=== PATIENT | female | born 1985 | race African-American/Black ===

== ENCOUNTER 2019-07-13 17:19 | Emergency (ER) | payer MEDICAID ==
[~2019-07-13] VITALS: Ht 157.5 cm; Wt 70.4 kg
[2019-07-13 17:25] VITALS: BP 128/71
[2019-07-13] MEDS ORDERED: MIRT15TA PO (17:33)
[2019-07-13] MEDS ORDERED: MULT-1469 PO (17:33)
[2019-07-13] MEDS ORDERED: PHEN-1749 PO (17:33)
[2019-07-13] MEDS ORDERED: TIZA4CAP PO (17:33)
[2019-07-13] MEDS ORDERED: NALT50TA5 PO (17:33)
[2019-07-13] MEDS ORDERED: CARI350T PO (17:33)
[2019-07-13] MEDS ORDERED: FLUO40CA6 PO (17:33)
[2019-07-13] MEDS ORDERED: PIRO10CA PO (17:33)
[2019-07-13] MEDS ORDERED: TRAZ-343 PO (17:33)
[2019-07-13] MEDS ORDERED: CHOL100013 PO (17:33)
[2019-07-13] MEDS ORDERED: CLON0.5T PO (17:33)
[2019-07-13] MEDS ORDERED: ONDA8TAB PO (17:33)
--- NOTE | 2019-07-13 17:51 | NUR ---
PT TO ER BED 1 VIA W/C
--- NOTE | 2019-07-13 17:55 | NUR ---
C/O GENERALIZED BODY PAIN WORSE IN LOW BACK PAIN X 12 PM TODAY HX-BACK PAIN DENIES UTI SYMPTOMS STATES SUBJECTIVE FEVER EARLIER TODAY STATES SORE THROAT, COUGH, RUNNY NOSE X YESTERDAY. DENIES N/V LIVES IN A HALF WAY HOUSE ALLERGY TO PCN PAIN 03/11. PLACED ON BEDSIDE MONITOR. HR 97, 99% RA, RR 22. LMP 07/06/2019 HX-FIBROMYALGIA, MS, PTSD
--- NOTE | 2019-07-13 19:11 | NUR ---
Nette grayson in [facility] - 07/13/19 at 1923 by KIAH REPORT TO MICHAEL RENEE, TRANSFER OF CARE AT THIS TIME
--- NOTE | 2019-07-13 19:12 | NUR ---
ASSISTED PT TO RESTROOM --STAYED WITH PT IN RESTROOM TO ENSURE SAFETY. PT PROVIDED URINE SAMPLE.
--- NOTE | 2019-07-13 19:13 | NUR ---
REPORT TO MICHAEL RENEE, TRANSFER OF CARE AT THIS TIME
[2019-07-13] MEDS ORDERED: KETOROLAC 30 MG/ML VIAL IM ONE (19:30)
--- NOTE | 2019-07-13 19:36 | NUR ---
XRAY AT BEDSIDE
[2019-07-13 20:05] LABS: APPEARANCE,URINE CLEAR (CLEAR); BILIRUBIN,URINE NEGATIVE (NEGATIVE); BLOOD, URINE NEGATIVE (NEGATIVE); COLOR,URINE YELLOW (YELLOW); LEUKOCYTE ESTERASE ,URINE TRACE (NEGATIVE); NITRITE, URINE NEGATIVE (NEGATIVE); UGLUCOSE NEGATIVE (NEGATIVE)
[2019-07-13 20:14] LABS: BASOPHILS % (AUTO) 0.3 % (0.0-2.0); EOSINOPHILS % (AUTO) 0.5 % (0.0-4.0); HEMATOCRIT 38.2 % (36-48); HEMOGLOBIN 12.6 g/dL (12.0-16.0); LYMPHOCYTES # (AUTO) 0.6 K/uL (2.5-16.5); LYMPHOCYTES % (AUTO) 5.9 % (20.5-51.1); MEAN CORPUSCULAR HEMOGLOBIN 31 pg (27-31); MEAN CORPUSCULAR HGB CONC 33 g/dL (33-37); MEAN CORPUSCULAR VOLUME 94.5 fL (80-94); MONOCYTES # (AUTO) 0.3 K/uL (0.8-1.0); MONOCYTES % (AUTO) 3.7 % (1.7-9.3); NEUTROPHILS # (AUTO) 8.4 K/uL (1.8-7.7); NEUTROPHILS % (AUTO) 89.6 % (42.2-75.2); PLATELET COUNT (AUTO) 181 K/uL (140-450); RED BLOOD CELL COUNT(AUTO) 4.04 MIL/uL (4.20-5.40); RED CELL DISTRIBUTION WIDTH 15.4 % (11.6-13.7); WHITE BLOOD COUNT (AUTO) 9.4 K/uL (4.8-10.8)
--- NOTE | 2019-07-13 20:30 | NUR ---
RN ASSISTED PATIENT TO RESTROOM, AMBULATED TO AND FROM RESTROOM WITHOUT INCIDENT. PATIENT STILL COMPLAINING OF PAIN. HEART RATE 105 BPM AND BP 121/85.
[2019-07-13 20:42] LABS: RBC,URINE 0 /HPF (0-5); WBC,URINE 0-5 /HPF (0-5)
[2019-07-13 21:02] LABS: ALBUMIN 3.2 g/dL (3.4-5.0); ANION GAP 16.1 (8-16); CARBON DIOXIDE 22.8 mmol/L (21-32); CREATININE 0.8 mg/dL (0.6-1.3); POTASSIUM 3.9 mmol/L (3.5-5.1); THYROID STIMULATING HORMONE 1.43 uIU/mL (0.34-3.74); TOTAL BILIRUBIN 0.4 mg/dL (0.0-1.0)
[2019-07-13] MEDS ORDERED: predniSONE 20 MG TAB PO ONE (21:45)
--- NOTE | 2019-07-13 22:47 | NUR ---
Patient discharged with v/s stable. Written and verbal after care instructions given and explained. Patient alert, oriented and verbalized understanding of instructions. Wheel Chair Assisted with steady gait. All questions addressed prior to discharge. ID band removed. Patient advised to follow up with PMD. Rx of PREDNISONE AND IBUPROFEN given. Patient educated on indication of medication including possible reaction and side effects. Opportunity to ask questions provided and answered.
[2019-07-13 22:50] VITALS: BP 122/73
== END 2019-07-13 22:47 | disposition home or self-care (01) ==
LOC: MED 17:19
DX: M79.10 Myalgia, unspecified site (principal); R50.9 Fever, unspecified; R05 Cough; Z79.899 Other long term (current) drug therapy; Z88.0 Allergy status to penicillin
CPT/HCPCS: 36415; 71045; 80053; 81001; 81025; 84443; 85025; 87804; 96372; 99284; J1885; J7512; Q0092